=== PATIENT | male | born 1935 | race Caucasian/White ===

== ENCOUNTER 2016-08-17 10:52 | Observation (INO) | payer OTHER, MEDICAID ==
[~2016-08-17] VITALS: Ht 165.1 cm; Wt 103.1 kg
[2016-08-17 11:23] VITALS: BP 113/62
[2016-08-17 17:02] VITALS: BP 150/79
[2016-08-17 17:05] VITALS: Ht 165.1 cm; Wt 103.1 kg
[2016-08-17 21:30] VITALS: BP 144/71
[2016-08-18 05:49] VITALS: BP 160/87
[2016-08-18 10:34] VITALS: BP 141/69
[2016-08-18 15:27] VITALS: BP 140/70
[2016-08-18 15:56] VITALS: BP 140/70
== END 2016-08-18 16:54 | disposition home or self-care (01) | DRG 511 ==
LOC: DS 10:52 → MU 10:52 → DS 13:00 → OR 13:00 → MU 15:48 → DS 22:37 → MU 22:37
PROVIDERS: ADMIT Neuromusculoskeletal Medicine, Sports Medicine
PROC: 0RNK0ZZ Release Left Shoulder Joint, Open Approach (ICD-10-PCS; 2016-08-17)
PROC: 0LQ20ZZ Repair Left Shoulder Tendon, Open Approach (ICD-10-PCS; principal; 2016-08-17 13:00)
DX: M75.122 Complete rotator cuff tear or rupture of left shoulder, not specified as traumatic (principal); I13.0 Hypertensive heart and chronic kidney disease with heart failure and stage 1 through stage 4 chronic kidney disease, or unspecified chronic kidney disease; M75.42 Impingement syndrome of left shoulder; M19.012 Primary osteoarthritis, left shoulder; E11.9 Type 2 diabetes mellitus without complications; I50.9 Heart failure, unspecified; N18.9 Chronic kidney disease, unspecified; I35.0 Nonrheumatic aortic (valve) stenosis; Z79.84 Long term (current) use of oral hypoglycemic drugs; Z79.82 Long term (current) use of aspirin
CPT/HCPCS: 97110-GP; C1713; G0378; J0690; J1030; J1170; J2405; J3010; J3490; J7040

== ENCOUNTER 2018-04-12 23:40 | Inpatient (IN) | payer OTHER ==
[~2018-04-12] VITALS: Ht 165.1 cm; Wt 92.3 kg
[2018-04-13] VITALS (7 sets, daily range): BP systolic 102–167; BP diastolic 59–90; Ht 165.1 cm; Wt 92.3 kg
[2018-04-13 00:48] LABS: BASOPHIL % 0.5 % (0-2); PLATELET COUNT 281 x10^3mcL (130-400)
[2018-04-13 01:00] LABS: CALCIUM 8.6 mg/dL (8.5-10.1); CARBON DIOXIDE 24.1 mmol/L (21-32); CHLORIDE SERUM 108 mmol/L (98-107); CREATININE SERUM 1.6 mg/dL (0.7-1.3); GLUCOSE SERUM 237 mg/dL (74-106); POTASSIUM SERUM 4.2 mmol/L (3.5-5.1); SODIUM SERUM 143 mmol/L (136-145)
[2018-04-13 01:12] LABS: ALBUMIN 3.3 g/dL (3.4-5.0); ALKALINE PHOSPHATASE 72 U/L (46-116); ALT/SGPT 15 U/L (16-63); AST/SGOT 24 U/L (15-37); BILIRUBIN TOTAL 0.3 mg/dL (0.20-1.00); FREE T4 0.88 ng/dL (0.76-1.46); LIPASE 95 IU/L (73-393); TOTAL PROTEIN, SERUM 7.6 g/dL (6.4-8.2)
[2018-04-13 02:57] LABS: microscopic required? NO
[2018-04-13 03:16] LABS: UA SPECIFIC GRAVITY >=1.030 (1.005-1.035); urine erythrocyte NEGATIVE (NEGATIVE)
[2018-04-13] MEDS ORDERED: CARVEDILOL25 M1 PO (04:36)
[2018-04-13] MEDS ORDERED: ALLOPURINOL100 MG PO (04:36)
[2018-04-13] MEDS ORDERED: GOOD SENSE ASPI81 M3 PO (04:36)
[2018-04-13] MEDS ORDERED: SIMVASTATIN20 M1 PO (04:36)
[2018-04-13] MEDS ORDERED: TERAZOSIN HCL5 MG PO (04:37)
[2018-04-13] MEDS ORDERED: AMARYL4 MG PO (04:37)
[2018-04-13] MEDS ORDERED: GLUCOSAMINE1000 MG PO (04:37)
[2018-04-14 06:28] VITALS: BP 105/54
[2018-04-14 07:37] LABS: CALCIUM 8.5 mg/dL (8.5-10.1); CARBON DIOXIDE 29.2 mmol/L (21-32); CHLORIDE SERUM 101 mmol/L (98-107); CREATININE SERUM 1.4 mg/dL (0.7-1.3); GLUCOSE SERUM 97 mg/dL (74-106); MAGNESIUM 1.5 mg/dL (1.8-2.4); POTASSIUM SERUM 3.5 mmol/L (3.5-5.1); SODIUM SERUM 140 mmol/L (136-145)
[2018-04-14 07:56] LABS: BASOPHIL % 0.5 % (0-2); PLATELET COUNT 258 x10^3mcL (130-400); RED CELL DISTRIBUTION WIDTH 13.8 % (11.5-14.5)
[2018-04-14 08:33] VITALS: BP 120/53
[2018-04-14 13:03] VITALS: BP 115/58
[2018-04-14 16:22] VITALS: BP 107/62
[2018-04-14 20:27] VITALS: BP 120/53
[2018-04-15 05:37] VITALS: BP 127/63
[2018-04-15 09:20] VITALS: BP 115/64
[2018-04-15] MEDS ORDERED: IMD60 PO (09:58)
[2018-04-15] MEDS ORDERED: PLA75 PO (10:03)
[2018-04-15 10:06] VITALS: BP 115/64
[2018-04-15] MEDS ORDERED: BENAZEPRIL HYDR20 M1 PO (10:14)
== END 2018-04-15 11:47 | disposition home or self-care (01) | DRG 280 ==
LOC: ED 23:40 → DU 04-13 03:47
PROVIDERS: Emergency Medicine; Internal Medicine Pulmonary Disease
DX: I21.4 Non-ST elevation (NSTEMI) myocardial infarction (principal); J96.01 Acute respiratory failure with hypoxia; I50.43 Acute on chronic combined systolic (congestive) and diastolic (congestive) heart failure; I11.0 Hypertensive heart disease with heart failure; I35.0 Nonrheumatic aortic (valve) stenosis; E11.65 Type 2 diabetes mellitus with hyperglycemia; E66.01 Morbid (severe) obesity due to excess calories
CPT/HCPCS: 82962; 83880; 84439; 87804; 90658; J1644; J1940; J3475; Q0092

== ENCOUNTER 2019-11-12 06:57 | Inpatient (IN) | payer OTHER, SELFPAY ==
[~2019-11-12] VITALS: Ht 152.4 cm; Wt 81.6 kg
[~2019-11-12 06:57] MED LIST: ALLOPURINOL100 MG PO; AMARYL4 MG PO; BENAZEPRIL HYDR20 M1 PO; CARVEDILOL25 M1 PO; GLUCOSAMINE1000 MG PO; GOOD SENSE ASPI81 M3 PO; IMD60 PO; PLA75 PO; SIMVASTATIN20 M1 PO; TERAZOSIN HCL5 MG PO
[2019-11-12 07:06] VITALS: Ht 152.4 cm; Wt 81.6 kg
[2019-11-12] MEDS ORDERED: TERAZOSIN HCL5 MG PO (07:59)
[2019-11-12] MEDS ORDERED: FORTAMET1000 MG PO (07:59)
[2019-11-12] MEDS ORDERED: FINASTERIDE1 MG PO (07:59)
[2019-11-12] MEDS ORDERED: LASIX20 MG PO (08:00)
[2019-11-12] MEDS ORDERED: PLA75 PO (08:00)
[2019-11-12] MEDS ORDERED: SIMVASTATIN20 M1 PO (08:00)
[2019-11-12] MEDS ORDERED: ALLOPURINOL100 MG PO (08:01)
[2019-11-12] MEDS ORDERED: ASPIR 8181 MG PO (08:01)
[2019-11-12] MEDS ORDERED: COZ25 PO (08:02)
[2019-11-12] MEDS ORDERED: COREG6.25 M1 PO (08:03)
[2019-11-12 08:45] LABS: CALCIUM 8.4 mg/dL (8.5-10.1); CARBON DIOXIDE 26.5 mmol/L (21-32); CHLORIDE SERUM 103 mmol/L (98-107); CREATININE SERUM 1.5 mg/dL (0.7-1.3); GLUCOSE SERUM 175 mg/dL (74-106); POTASSIUM SERUM 3.6 mmol/L (3.5-5.1); SODIUM SERUM 140 mmol/L (136-145)
[2019-11-12 08:49] LABS: ALBUMIN 3.2 g/dL (3.4-5.0); ALKALINE PHOSPHATASE 76 U/L (46-116); ALT/SGPT 15 U/L (16-63); AST/SGOT 18 U/L (15-37); BILIRUBIN TOTAL 0.4 mg/dL (0.20-1.00); C REACTIVE PROTEIN 2.9 mg/dL (<=0.9); LACTIC DEHYDROGENASE (LDH) 179 U/L (100-190); TOTAL PROTEIN, SERUM 7.2 g/dL (6.4-8.2)
[2019-11-12 09:01] LABS: UA SPECIFIC GRAVITY >=1.030 (1.005-1.035); microscopic required? YES; urine erythrocyte 1+ (NEGATIVE)
[2019-11-12 09:04] LABS: BASOPHIL % 0.3 % (0-2); PLATELET COUNT 300 x10^3mcL (130-400)
[2019-11-12 23:37] VITALS: BP 113/82
[2019-11-13 05:38] VITALS: BP 113/67
[2019-11-13 06:49] LABS: CALCIUM 8.2 mg/dL (8.5-10.1); CARBON DIOXIDE 32.6 mmol/L (21-32); CHLORIDE SERUM 103 mmol/L (98-107); CREATININE SERUM 1.3 mg/dL (0.7-1.3); GLUCOSE SERUM 130 mg/dL (74-106); MAGNESIUM 1.6 mg/dL (1.8-2.4); POTASSIUM SERUM 4.1 mmol/L (3.5-5.1); SODIUM SERUM 139 mmol/L (136-145)
[2019-11-13 06:51] LABS: BASOPHIL % 0.5 % (0-2); PLATELET COUNT 277 x10^3mcL (130-400); RED CELL DISTRIBUTION WIDTH 13.9 % (11.5-14.5)
[2019-11-13 08:20] VITALS: BP 110/62
[2019-11-13 12:28] VITALS: BP 99/59
[2019-11-13 14:57] LABS: CALCIUM 8.8 mg/dL (8.5-10.1); CARBON DIOXIDE 32.5 mmol/L (21-32); CHLORIDE SERUM 101 mmol/L (98-107); CREATININE SERUM 1.3 mg/dL (0.7-1.3); GLUCOSE SERUM 156 mg/dL (74-106); POTASSIUM SERUM 4.3 mmol/L (3.5-5.1); SODIUM SERUM 138 mmol/L (136-145)
[2019-11-13 17:09] VITALS: BP 107/58
[2019-11-13] MEDS ORDERED: L40I PO (18:41)
[2019-11-13 19:02] VITALS: BP 107/58
== END 2019-11-13 20:37 | disposition home or self-care (01) | DRG 292 ==
LOC: ED 06:57 → DU 10:41
PROVIDERS: Internal Medicine Pulmonary Disease; Specialist; ADMIT Hospitalist; ATTEND Hospitalist
DX: I11.0 Hypertensive heart disease with heart failure (principal); I48.20 Chronic atrial fibrillation, unspecified; I50.9 Heart failure, unspecified; Z79.01 Long term (current) use of anticoagulants; Z20.828 Contact with and (suspected) exposure to other viral communicable diseases; E11.9 Type 2 diabetes mellitus without complications; E78.00 Pure hypercholesterolemia, unspecified; M10.9 Gout, unspecified; E83.42 Hypomagnesemia; N28.9 Disorder of kidney and ureter, unspecified
CPT/HCPCS: 36600; 82962; 83880; 85378; 87804; G0378; J1644; J1940; J3475; J7050; Q0092; U0003-CS